=== PATIENT | male | born 1985 | race African-American/Black ===

== ENCOUNTER 2019-05-10 18:39 | Emergency (ER) | payer MEDICAID, OTHER ==
[~2019-05-10] VITALS: Ht 172.7 cm; Wt 65.0 kg
[2019-05-10] MEDS ORDERED: ONDANSETRON HCL 4MG/2ML INJ IV STA (20:52)
[2019-05-10] MEDS ORDERED: SODIUM CHLORIDE 0.9% 1,000 ML IV ONE (20:52)
[2019-05-10 21:14] LABS: BASOPHILS % 0.5 % (0.0-2.0); EOSINOPHILS % 2.2 % (0.0-5.0); HEMATOCRIT. 42.6 % (42.0-52.0); LYMPHOCYTES % 10.9 % (20.0-50.0); MEAN CORPUSCULAR HEMOGLOBIN 29.8 pg (28.0-32.0); MEAN CORPUSCULAR VOLUME 90.9 fL (80.0-94.0); MEAN PLATELET VOLUME 8.7 fl (7.4-10.4); MONOCYTES % 8.5 % (2.0-8.0); NEUTROPHILS % 77.9 % (40.0-76.0); PLATELET 248 x1000/uL (130-400); RED BLOOD CELL COUNT 4.68 mill/uL (4.7-6.1); RED CELL DISTRIBUTION WIDTH 14.1 % (11.6-14.6)
[2019-05-10 21:18] LABS: CHLORIDE 113 mEq/L (98-107)
[2019-05-10 21:22] LABS: ETHANOL BLOOD < 10 mg/dL
[2019-05-10 21:27] LABS: CREATINE KINASE 285 IU/L (39-308)
[2019-05-10 21:29] LABS: CREATINE KINASE MB FRACTION 1.3 ng/mL (0.5-3.6)
[2019-05-10 22:26] LABS: *AMPHETAMINES SCREEN URINE PRESUMTIVE POSITIVE (NEGATIVE); *BARBITURATES SCREEN URINE NEGATIVE (NEGATIVE)
[2019-05-10 22:27] LABS: *BENZODIAZEPINES SCREEN URINE PRESUMTIVE POSITIVE (NEGATIVE); *COCAINE SCREEN URINE PRESUMTIVE POSITIVE (NEGATIVE); CANNABINOID URINE SCREEN PRESUMTIVE POSITIVE (NEGATIVE); METHADONE URINE SCREEN NEGATIVE (NEGATIVE); OPIATES URINE SCREEN NEGATIVE (NEGATIVE); PHENCYCLIDINE URINE SCREEN NEGATIVE (NEGATIVE)
[2019-05-11 03:53] VITALS: BP 128/77
== END 2019-05-11 03:54 | disposition home or self-care (01) ==
LOC: ER 18:39
DX: T40.5X1A Poisoning by cocaine, accidental (unintentional), initial encounter (principal); T40.7X1A Poisoning by cannabis (derivatives), accidental (unintentional), initial encounter; G92 Toxic encephalopathy; R45.1 Restlessness and agitation; F31.9 Bipolar disorder, unspecified; J45.909 Unspecified asthma, uncomplicated; Z88.0 Allergy status to penicillin; Y92.89 Other specified places as the place of occurrence of the external cause
CPT/HCPCS: 36415; 80053; 80305; 80320; 82550; 82553; 84484; 85025; 93005; 96365; 96375; 99284; J2405; J7030; G0480

== ENCOUNTER 2021-10-11 00:02 | Emergency (ER) | payer MEDICAID ==
[~2021-10-11] VITALS: Ht 170.2 cm; Wt 68.0 kg
[2021-10-11 01:00] LABS: BASOPHILS % 0.8 % (0.0-2.0); EOSINOPHILS % 3.4 % (0.0-5.0); LYMPHOCYTES % 24.8 % (20.0-50.0); MEAN CORPUSCULAR HEMOGLOBIN 29.2 pg (28.0-32.0); MEAN CORPUSCULAR VOLUME 87.8 fL (80.0-94.0); MEAN PLATELET VOLUME 8.6 fl (7.4-10.4); MONOCYTES % 7.7 % (2.0-8.0); NEUTROPHILS % 63.3 % (40.0-76.0); PLATELET 244 x1000/uL (130-400); RED BLOOD CELL COUNT 4.45 mill/uL (4.7-6.1); RED CELL DISTRIBUTION WIDTH 15.5 % (11.6-14.6)
[2021-10-11 01:16] LABS: CHLORIDE 114 mEq/L (98-107)
[2021-10-11 01:21] LABS: ETHANOL BLOOD 263 mg/dL
[2021-10-11 03:24] LABS: CANNABINOID URINE SCREEN PRESUMTIVE POSITIVE (NEGATIVE); OPIATES URINE SCREEN NEGATIVE (NEGATIVE); PHENCYCLIDINE URINE SCREEN NEGATIVE (NEGATIVE)
[2021-10-11 03:25] LABS: *AMPHETAMINES SCREEN URINE NEGATIVE (NEGATIVE); *BARBITURATES SCREEN URINE NEGATIVE (NEGATIVE); *BENZODIAZEPINES SCREEN URINE NEGATIVE (NEGATIVE); *COCAINE SCREEN URINE PRESUMTIVE POSITIVE (NEGATIVE); METHADONE URINE SCREEN NEGATIVE (NEGATIVE)
[2021-10-11] MEDS ORDERED: OLANZAPINE 5MG TABLET ODT PO SCH (14:45)
[2021-10-11] MEDS: DIVALPROEX SODIUM 250MG DR TABLET PO SCH (22:25)
[2021-10-12] MEDS: DIVALPROEX SODIUM 250MG DR TABLET PO SCH ×2 (12:35→14:00)
[2021-10-12] MEDS: OLANZAPINE 5MG TABLET ODT PO SCH ×2 (12:35)
[2021-10-12 14:07] VITALS: BP 140/102
== END 2021-10-12 14:43 ==
LOC: ER 00:02
DX: T50.902A Poisoning by unspecified drugs, medicaments and biological substances, intentional self-harm, initial encounter (principal); R41.82 Altered mental status, unspecified; F31.30 Bipolar disorder, current episode depressed, mild or moderate severity, unspecified; R00.0 Tachycardia, unspecified; R45.1 Restlessness and agitation; E87.6 Hypokalemia; R73.9 Hyperglycemia, unspecified; Z20.822 Contact with and (suspected) exposure to COVID-19; Y92.89 Other specified places as the place of occurrence of the external cause; F14.10 Cocaine abuse, uncomplicated; F15.10 Other stimulant abuse, uncomplicated; F12.10 Cannabis abuse, uncomplicated; F10.129 Alcohol abuse with intoxication, unspecified; Y90.8 Blood alcohol level of 240 mg/100 ml or more; Z75.1 Person awaiting admission to adequate facility elsewhere; J45.909 Unspecified asthma, uncomplicated; Z88.0 Allergy status to penicillin; Z63.8 Other specified problems related to primary support group
CPT/HCPCS: 36415; 80053; 80305; 80307; 80320; 80329; 85025; 93005; 99285; C9803; U0003; U0005; G0480

== ENCOUNTER 2022-02-20 19:27 | Emergency (ER) | payer OTHER, MEDICAID ==
[~2022-02-20] VITALS: Ht 170.2 cm; Wt 60.0 kg
[2022-02-20] MEDS ORDERED: ACETAMINOPHEN 325MG TABLET PO ONE (19:45)
[2022-02-20 21:06] VITALS: BP 143/67
[2022-02-21] MEDS ORDERED: T3 PO (13:29)
[2022-02-21] MEDS ORDERED: NAPR500T7 PO (13:29)
== END 2022-02-20 21:07 ==
LOC: ER 19:27
DX: T65.892A Toxic effect of other specified substances, intentional self-harm, initial encounter (principal); H10.213 Acute toxic conjunctivitis, bilateral; S20.219A Contusion of unspecified front wall of thorax, initial encounter; R03.0 Elevated blood-pressure reading, without diagnosis of hypertension; X58.XXXA Exposure to other specified factors, initial encounter; F14.90 Cocaine use, unspecified, uncomplicated; F12.90 Cannabis use, unspecified, uncomplicated; Y93.89 Activity, other specified; Y92.018 Other place in single-family (private) house as the place of occurrence of the external cause
CPT/HCPCS: 71045; 99283

== ENCOUNTER 2022-02-21 11:48 | Emergency (ER) | payer OTHER, MEDICAID ==
[~2022-02-21] VITALS: Ht 167.6 cm; Wt 64.0 kg
[2022-02-21] MEDS ORDERED: IBUPROFEN 600MG TABLET PO STA (12:19)
[2022-02-21] MEDS ORDERED: NAPR500T7 PO (13:29)
[2022-02-21] MEDS ORDERED: T3 PO (13:29)
[2022-02-21] MEDS ORDERED: ACETAMINOPHEN WITH CODEINE 300/30MG TABLET PO NR (13:35)
[2022-02-21 13:47] VITALS: BP 126/75
== END 2022-02-21 13:48 ==
LOC: ER 11:54
DX: S22.41XA Multiple fractures of ribs, right side, initial encounter for closed fracture (principal); W18.30XA Fall on same level, unspecified, initial encounter; Y93.89 Activity, other specified; Y92.89 Other specified places as the place of occurrence of the external cause; Y99.8 Other external cause status
CPT/HCPCS: 71101; 99283